=== PATIENT | female | born 1955 | race Caucasian/White ===

== ENCOUNTER 2024-03-12 13:27 | Outpatient (OUT) | payer OTHER, SELFPAY ==
--- NOTE | 2024-03-12 13:39 | ECG_ITS ---
The [facility] Test Date: 2024-03-12 Pat Name: JOSE ROYAL Department: Room: - Gender: Female [employer]: : 1955 Requested By: MAYRA TOVAR Order Number: [id number] Reading MD: NIKKI BALDWIN Measurements Intervals [place] Rate: 75 P: 71 [place]: 143 QRS: 51 QRSD: 77 T: 53 QT: 363 QTc: 407 Interpretive Statements SINUS RHYTHM No previous ECG available for comparison Electronically Signed On 03-13-2024 6:59:33 EST by NIKKI BALDWIN
[2024-03-12 14:31] LABS: Basophils Percent Auto 0.5 % (0.2-2.0); Eosinophils Absolute Auto 0.1 10^3/uL (0.0-0.7); Eosinophils Percent Auto 0.8 % (0.9-7.0); Hematocrit 40.8 % (36.0-48.0); Hemoglobin 13.8 g/dL (12.0-16.0); Immature Granulocytes Abs Auto 0.02 10^3/uL (0.00-0.03); Immature Granulocytes Pct Auto 0.3 % (0.0-0.5); Lymphocytes Absolute Auto 1.1 10^3/uL (1.2-3.8); Lymphocytes Percent Auto 17.2 % (20.5-60.0); Mean Corpuscular HGB Conc 33.8 g/dL (29.9-35.2); Mean Corpuscular Hemoglobin 30.5 pg (26.7-34.0); Mean Corpuscular Volume 90.1 fL (81.0-99.0); Mean Platelet Volume 10.3 fL (9.5-13.5); Monocytes Absolute Auto 0.6 10^3/uL (0.3-0.8); Monocytes Percent Auto 9.2 % (1.7-12.0); Neutrophils Absolute Auto 4.7 10^3/uL (1.4-6.5); Platelet Count 211 10^3/uL (150-450); Red Blood Count 4.53 10^6/uL (4.20-5.40); Red Cell Distribution Width 12.6 % (11.0-15.0); White Blood Count 6.5 10^3/uL (4.0-11.0)
--- NOTE | 2024-03-12 14:32 | XR_ITS ---
The [address] [address] Patient Name: JOSE ROYAL MRN: [id number] date: 1955 Sex: F Assigned Patient Location: [facility] Current Patient Location: [facility] Accession/Order Number: [id number] Exam Date: 03/12/2024 14:25 Report Date: 03/12/2024 21:12 At the request of: MAYRA TOVAR Procedure: XR chest 2V EXAM: XR chest 2V HISTORY: Preop exam COMPARISON: None TECHNIQUE: 2 views FINDINGS: The heart and mediastinum are unremarkable. The lungs are clear. No focal infiltrates are seen. Chronic rotator cuff tear seen on the left. XR/XR chest 2V IMPRESSION: No acute cardiopulmonary pathology. Electronically authenticated by: Roberto PETER Date: 03/12/2024 21:12
[2024-03-12 15:10] LABS: Anion Gap 12.2; BUN Creatinine Ratio 9.7; Calcium 8.4 mg/dL (8.5-10.1); Carbon Dioxide 26.9 mmol/L (21.0-32.0); Chloride 108 mmol/L (98-107); Estimated GFR (African America >60 (>=60 mL/min/1.73m^2); Estimated GFR (Non-African Ame 53 (>=60 mL/min/1.73m^2); Glucose 141 mg/dL (74-106); Potassium 4.1 mmol/L (3.5-5.1); Sodium 143 mmol/L (136-145)
== END 2024-03-12 13:28 | disposition home or self-care (01) ==
PROVIDERS: PCP Internal Medicine; Visit Provider Otolaryngology
DX: Z01.810 Encounter for preprocedural cardiovascular examination (principal); Z01.812 Encounter for preprocedural laboratory examination; R13.13 Dysphagia, pharyngeal phase; J39.2 Other diseases of pharynx
CPT/HCPCS: 71046; 80048; 85025; 93005

== ENCOUNTER 2024-03-13 08:43 | Day surgery (SDC) | payer OTHER, SELFPAY ==
[2024-03-12 14:17] VITALS: BP 111/72; PULSE 81; TEMP 36.2; O2SAT 98; BMI 25.4
[2024-03-13] VITALS (9 sets, daily range): BP systolic 112–134; BP diastolic 59–79; PULSE 80–94; TEMP 36.3; O2SAT 92–100; BMI 25.0
--- NOTE | 2024-03-13 | PCN_ITS ---
OPERATION DATE: 03/13/2023 PRIMARY CARE PROVIDER: China Vigil CNP SURGEON: Shannon Wells M.D. PREOPERATIVE DIAGNOSIS: Dysphagia. POSTOPERATIVE DIAGNOSIS: Esophageal mass. PROCEDURE: Direct laryngoscopy. ANESTHESIA: General endotracheal. COMPLICATIONS: None. FINDINGS: A friable mass within either a Zenker?s diverticulum or the proximal esophagus. INDICATIONS: This 69-year-old woman presented complaining of throat pain and dysphagia since February 02, 2024. She was treated with prednisone in Urgent Care and reported that her pain resolved, but her dysphagia persisted. Patient describes her dysphagia as only being able to swallow on the right side of her throat. An effort was made to do an indirect laryngoscopy and to do fiberoptic laryngoscopy in the office on March 11; however, this was not tolerated by the patient due to a very active gag reflex. Decision was made, because of the patient?s very specific complaint, to proceed with a direct visualization of the hypopharynx. PROCEDURE: Patient identified in the holding area and taken back to the OR, where she was placed in the supine position. After induction of general endotracheal anesthesia, the table was turned, a shoulder roll placed and a tooth guard put in position. An anterior commissure laryngoscope was passed along the left throat, the tonsillar fossae, tongue base, supraglottic larynx and endolarynx were examined, and there was no abnormality noted. The piriform sinuses were examined, and there was no abnormality evident. The scope was then passed posterior to the cricoid cartilage, and once the cricoid cartilage was elevated, there was an opening consistent either with the opening of the esophagus or possibly a Zenker?s diverticulum, which was immediately evident, and a smooth walled mass evident within that opening. The mass was palpated with suction and there was slight bleeding. Because of the limited information available about the mass, the decision was made not to do a biopsy at this point, to avoid potential catastrophic bleeding. The scope was then removed and the patient was awakened and taken to the recovery room in good condition. I then contacted my office to arrange for an expedited CT neck and barium esophagram to better determine the nature and extent of the mass or diverticulum. MARLI
[2024-03-13] MEDS: LACTATED RINGER'S SOLUTION 1,000 ML 50 ML IV (09:09)
--- NOTE | 2024-03-13 11:20 | CT_ITS ---
The [address] [address] Patient Name: JOSE ROYAL MRN: [id number] date: 1955 Sex: F Assigned Patient [facility]: [facility] Current Patient Location: [facility] Accession/Order Number: [id number] Exam Date: 03/13/2024 12:10 Report Date: 03/13/2024 12:42 At the request of: MAYRA WELLS Procedure: CT soft tissue neck w con EXAMINATION: CT soft tissue neck w con HISTORY: Esophageal mass COMPARISON: No relevant comparison available. TECHNIQUE: Axial, Coronal, and Sagittal CT images created with IV contrast. Dose reduction techniques were achieved by using automated exposure control and/or adjustment of mA and/or kV according to patient size and/or use of iterative reconstruction technique. FINDINGS: NASOPHARYNX: No asymmetry of the fossae of Rosenmuller and torus tubarius. ORAL CAVITY: No visible mass. OROPHARYNX: No asymmetry of the facial and lingual tonsils. HYPOPHARYNX: No mass or other visible lesion. LARYNX: No mass or asymmetry of the vocal cords. SINUSES: No significant fluid or mucosal thickening. NECK GLANDS: No visible abnormality of the parotid, submandibular, and thyroid glands. LYMPH NODES: No pathological-appearing or enlarged lymph nodes. VASCULATURE: No suspicious abnormality. BONES: Multilevel degenerative disc disease of cervical spine. Reversal normal curvature; positioning versus muscle spasm. OTHER: 1 cm pocket of air which may be within the proximal esophagus with subsequent 8 mm thick band of soft tissue extending across the esophagus with air-filled esophagus distally, versus large Zenker's diverticulum with air trapped in the distal pocket and collapsed esophagus running anteriorly to the diverticulum and completely flattens. No abscess, significant vascularity, or involvement of the airway. CT/CT soft tissue neck w con IMPRESSION: 1. Large Zenker's diverticulum versus soft tissue mass/soft tissue band within proximal esophagus. Barium esophagram is recommended for further evaluation. Findings were discussed with Dr. Wells via telephone. Electronically authenticated by: SHANELLE COREA Date: 03/13/2024 12:42
[2024-03-13 11:43] LABS: Estimated GFR (African America >60 (>=60 mL/min/1.73m^2); Estimated GFR (Non-African Ame >60 (>=60 mL/min/1.73m^2)
--- NOTE | 2024-03-13 12:16 | PC.NURSE ---
To CT per wheelchair
--- NOTE | 2024-03-13 12:17 | PC.NURSE ---
Left for CT at 1205
--- NOTE | 2024-03-13 12:26 | PC.NURSE ---
Returns from CT Scan and back on cart
== END 2024-03-13 12:45 | disposition home or self-care (01) ==
PROVIDERS: PCP Internal Medicine; Visit Provider Otolaryngology
PROC: (CPT 320; principal; 2024-03-13 10:00)
DX: R13.13 Dysphagia, pharyngeal phase (principal); K22.89 Other specified disease of esophagus; J39.2 Other diseases of pharynx; I10 Essential (primary) hypertension; J44.9 Chronic obstructive pulmonary disease, unspecified; Z98.51 Tubal ligation status; E03.9 Hypothyroidism, unspecified
CPT/HCPCS: 31525; 36415; 70491; 82565; J1100; J2250; J2405; J2704; J3010; Q9967

== ENCOUNTER 2024-03-14 12:15 | Outpatient (OUT) | payer OTHER, SELFPAY ==
--- OUTSIDE RECORDS SUMMARY | 2024-03-14 12:24 | XMS_ITS | CCD ---
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 Name Role Phone Brian Sullivan Primary Care Provider [phone] BRIAN SULLIVAN Primary Care Unavailable KITTY FRITZ Referring Unavailable Brian Sullivan Primary Care Provider Unavaillynn e Brian Sullivan DO Primary Care Provider KITTY FRITZ Referring Unavailable BRIAN SULLIVAN Primary Care Unavailable Mac Small Primary Care Provid er KITTY FRITZ Attending Unavailable BRIAN SULLIVAN Referring Unavailable BRIAN SULLIVAN Primary Care Unavailable MAC VIGIL Attending Unavailable BRIAN SULLIVAN Referring Unavailable MAC VIGIL Primary Care Unavailable MAC VIGIL Attending Unavailable MAC VIGIL Referring Unavailable MAC VIGIL Primary Care Unavailable Brian Sullivan MD Primary Care Provider SHANNON TOVAR Attending Unavailable NATALEE DE LOS SANTOS Attending Unavailable NATALEE DE LOS SANTOS Referring Unavailable NATALEE DE LOS SANTOS Attending Unavailable Allergies Allergy Classification Reported Allergen(s) Allergy Type Date of Onset Reaction(s) Facility (12 sources) Lisinopril; Translations: [LISINOPRIL] Drug Allergy [address] [facility] Work Phone: (7 sources) Lisinopril Propensity to adverse reactions 9 Cough [facility] Medications Current Medications Medication Drug Class(es) Dates Sig (Normalized) Sig (Original) atenolol 50 mg oral tablet (18 sources) beta-Adrenergic Aston Start: 01-22-2023 take 1 tablet by mouth in the morning atenolol (Tenormin) 50 MG tablet Take 50 mg by mouth in the morning. 01/22/2023 Active azithromycin 250 mg oral tablet (1 source) Macrolide Antimicrobial Start: 02-25-2024 End: 02-29-2024 azithromycin (ZITHROMAX) 250 mg tablet Indications: Acute non-recurrent pansinusitis Take 2 tablets the first day, then 1 tablet daily for 4 days. 6 tablet 02/25/2024 02/29/2024 Active 60 actuat budesonide 0.08 mg/actuat / formoterol fumarate 0.0045 mg/actuat metered dose inhaler (7 sources) Corticosteroid, beta2-Adrenergic Agonist Start: 12-20-2022 End: 03-11-2024 Symbicort 80-4.5 MCG/ACT inhaler 12/20/2022 03/11/2024 Discontinued (Therapy completed) Start: 01-13-2022 take 2 puff(s) by in halation in the morning budesonide-formoteroL (SYMBICORT) 80-4.5 mcg/actuation inhaler Indications: Chronic obstructive pulmonary disease, unspecified COPD type ([facility]) Inhale 2 puffs in the morning and 2 puffs before bedtime. 10.2 g 12 01/13/2022 Active cholecalciferol 0.125 mg oral capsule (13 sources) Vitamin D End: 03-11-2024 cholecalciferol (Vitamin D-3) 125 MCG (5000 UT) capsule 1 (one) time each day at the same time 03/11/2024 Discontinued (Therapy completed) cyclobenzaprine hydrochloride 10 mg oral tablet (20 sources) Muscle Relaxant Start: 11-29-2022 End: 03-08-2023 take 1 tablet by mouth at bedtime cyclobenzaprine (Flexeril) 10 MG tablet Take 1 tablet by mouth at bedtime 03/08/2023 Active famotidine 20 mg oral tablet (19 sources) Histamine-2 Receptor Antagonist Start: 01-25-2023 End: 02-25-2024 take 1 tablet by mouth at bedtime famotidine (Pepcid) 20 MG tablet Take 1 tablet by mouth at bedtime 01/25/2023 Active 14 actuat fluticasone furoate 0.1 mg/actuat dry powder inhaler (18 sources) Corticosteroid Start: 10-01-2023 take 1 puff(s) by inhalation in the morning Arnuity Ellipta 100 MCG/ACT inhaler Inhale 1 puff in the morning. 10/01/2023 Active Start: 10-01-2023 take 1 puff(s) by in halation in the morning fluticasone furoate (ARNUITY ELLIPTA) 100 mcg/actuation blister with device Indications: Chronic obstructive pulmonary disease, unspecified COPD type ([facility]) Inhale 1 puff in the morning. 3 each 5 10/01/2023 Active Start: 12-07-2022 take 1 puff(s) by mo uth once daily in the morning fluticasone furoate (ARNUITY ELLIPTA) 100 mcg/actuation blister with device INHALE ONE PUFF BY MOUTH EVERY MORNING 3 each 1 12/07/2022 Active Start: 12-07-2022 take 1 puff(s) by mo uth once daily in the morning fluticasone furoate (ARNUITY ELLIPTA) 100 mcg/actuation blister with device INHALE ONE PUFF BY MOUTH EVERY MORNING 3 each 1 12/07/2022 Active ibandronic acid 150 mg oral tablet (19 sources) Bisphosphonate Start: 12-19-2022 End: 11-28-2023 take 1 tablet by mouth every 30 days ibandronate (Boniva) 150 MG tablet Take 150 mg by mouth every 30 (thirty) days 11/29/2023 Active levothyroxine sodium 0.112 mg oral tablet (18 sources) l-Thyroxine Start: 01-22-2023 take 1 tablet by mouth in the morning levothyroxine (Synthroid, Levoxyl) 112 MCG tablet Take 112 mcg by mouth in the morning. 01/22/2023 Active metoclopramide 5 mg oral tablet (4 sources) Dopamine-2 Receptor Antagonist Start: 12-27-2021 take 1 tablet by mouth at bedtime metoclopramide (REGLAN) 5 mg tablet Indications: Laryngopharyngeal reflux Take 1 tablet (5 mg total) by mouth in the morning and at bedtime. 180 tablet 1 12/27/2021 Active montelukast 10 mg oral tablet (18 sources) Leukotriene Receptor Antagonist Start: 02-26-2023 take 1 tablet by mouth in the morning montelukast (Singulair) 10 MG tablet Take 1 tablet by mouth in the morning. 02/26/2023 Active Start: 11-26-2022 take 1 tablet by ruddy th once daily in the morning montelukast (SINGULAIR) 10 mg tablet TAKE ONE TABLET BY MOUTH EVERY MORNING 30 tablet 2 11/26/2022 Active nabumetone 500 mg oral tablet (9 sources) Nonsteroidal Anti-inflammatory Drug Start: 10-02-2021 End: 02-25-2024 nabumetone (RELAFEN) 500 mg tablet 10/02/2021 02/25/2024 Discontinued (Therapy completed) pantoprazole 40 mg delayed release oral tablet (18 sources) Proton Pump Inhibitor Start: 03-26-2023 take 1 tablet by mouth in the morning pantoprazole (ProtoNix) 40 MG EC tablet Take 1 tablet by mouth in the morning. 03/26/2023 Active Start: 09-27-2022 take 1 tablet by ruddy th once daily in the morning pantoprazole (PROTONIX) 40 mg EC tablet Indications: Laryngopharyngeal reflux TAKE ONE TABLET BY MOUTH EVERY MORNING 30 tablet 5 09/27/2022 Active potassium chloride 10 meq extended release oral tablet (19 sources) Start: 07-30-2022 End: 02-22-2023 take 1 tablet by mouth in the morning potassium chloride CR (Klor-Con) 10 MEQ ER tablet Take 1 tablet by mouth in the morning and 1 tablet before bedtime. 02/22/2023 Active predniSONE 20 mg oral tablet (1 source) Start: 02-25-2024 End: 03-01-2024 take 1 tablet by mouth in the morning predniSONE (DELTASONE) 20 mg tablet Indications: Sore throat , Acute non-recurrent pansinusitis Take 1 tablet (20 mg total) by mouth in the morning for 5 days. 5 tablet 02/25/2024 03/01/2024 Active Problems Active Problems Problem Classification Problem Date Documented Da te Episodic/Chronic Chronic obstructive pulmonary disease and bronchiectasis (20 sources) Chronic obstructive lung disease; Translations: [Chronic obstructive pulmonary disease, unspecified] Onset: 2 01-11-2022 Chronic Esophageal disorders (20 sources) Laryngopharyngeal reflux; Translations: [Gastro-esophageal reflux disease without esophagitis] Onset: 2 11-08-2021 Chronic Essential hypertension (20 sources) Essential hypertension; Translations: [Essential (primary) hypertension] Onset: 2 11-08-2021 Chronic Osteoporosis (20 sources) Osteoporosis; Translations: [Age-related osteoporosis without current pathological fracture] Onset: 3 03-08-2022 Chronic Other connective tissue disease (18 sources) Tear of left rotator cuff; Translations: [Unspecified rotator cuff tear or rupture of left shoulder, not specified as traumatic] Onset: 0 11-08-2021 Episodic Other connective tissue disease (8 sources) Bicipital tendinitis, left shoulder; Translations: [Bicipital tenosynovitis] Onset: 5 03-06-2024 Episodic Other connective tissue disease (8 sources) Full thickness rotator cuff tear; Translations: [Complete rotator cuff tear or rupture of right shoulder, not specified as traumatic] Onset: 5 03-06-2024 Episodic Other gastrointestinal disorders (1 source) Heartburn Onset: 5 Episodic Other gastrointestinal disorders (2 sources) Pharyngeal dysphagia; Translations: [Dysphagia, pharyngeal phase] 03-11-2024 Episodic Other nervous system disorders (18 sources) Chronic pain; Translations: [Other chronic pain] Onset: 2 11-08-2021 Chronic Other non-traumatic joint disorders (18 sources) Derangement of left shoulder joint; Translations: [Other specific joint derangements of left shoulder, not elsewhere classified] Onset: 2 11-08-2021 Chronic Other upper respiratory disease (18 sources) Allergic rhinitis; Translations: [Allergic rhinitis, unspecified] Onset: 2 11-08-2021 Chronic Other upper respiratory disease (2 sources) Sore throat - chronic; Translations: [Chronic pharyngitis] 03-03-2024 Chronic Other upper respiratory disease (2 sources) Pharyngeal gag reflex finding; Translations: [Other diseases of pharynx] 03-11-2024 Episodic Other upper respiratory infections (4 sources) Sore throat symptom; Translations: [Acute pharyngitis, unspecified] Onset: 5 02-25-2024 Episodic Thyroid disorders (19 sources) Hypothyroidism; Translations: [Hypothyroidism, unspecified] Onset: 09-2711-08-2021 Chronic Unclassified (2 sources) Patient encounter status; Translations: [Screening breast examination] Unclassified (1 source) establish Onset: Past or Other Problems Problem Classification Problem Date Documented Date Episodic/Chronic Fluid and electrolyte disorders (19 sources) Hypokalemia; Translations: [Hypokalemia] Onset: 11-08-2021 11-08-2021 Episodic Joint disorders and dislocations; trauma-related (20 sources) Closed traumatic dislocation of joint of shoulder region; Translations: [Unspecified dislocation of unspecified shoulder joint, initial encounter] Onset: 11-08-2021 11-08-2021 Episodic Mood disorders (10 sources) Mood disorders Onset: 11-29-2022 Resolved: 06-18-2023 11-29-2022 Other connective tissue disease (10 sources) Biceps tendinitis; Translations: [Bicipital tendinitis, right shoulder] Onset: 11-08-2021 11-08-2021 Episodic Other connective tissue disease (10 sources) Bicipital tenosynovitis; Translations: [Bicipital tendinitis, unspecified shoulder] Onset: 11-08-2021 11-08-2021 Episodic Other connective tissue disease (10 sources) Disorder of rotator cuff; Translations: [Unspecified disorder of synovium and tendon, unspecified shoulder] Onset: 11-08-2021 11-08-2021 Episodic Other connective tissue disease (1 source) Other muscle spasm; Translations: [Other muscle spasm] Onset: 10-01-2023 Episodic Other diseases of kidney and ureters (18 sources) Cyst of kidney; Translations: [Cyst of kidney, acquired] Onset: 11-15-2016 03-05-2017 Episodic Other non-traumatic joint disorders (18 sources) Shoulder joint pain; Translations: [Pain in unspecified shoulder] Onset: 11-08-2021 11-08-2021 Episodic Other non-traumatic joint disorders (1 source) Pain in right shoulder; Translations: [Pain in right shoulder] Onset: 11-08-2021 Episodic Other non-traumatic joint disorders (1 source) Pain in left shoulder; Translations: [Pain in left shoulder] Onset: 11-08-2021 Episodic Other nutritional; endocrine; and metabolic disorders (1 source) Body mass index (BMI) 27.0-27.9, adult; Translations: [Body mass index (BMI) 27.0-27.9, adult] Onset: 06-18-2023 Episodic Other screening for suspected conditions (not mental disorders or infectious disease) (19 sources) Decreased vitamin D; Translations: [Other specified abnormal findings of blood chemistry] Onset: 09-22-2020 11-08-2021 Episodic Residual codes; unclassified (18 sources) History of arthroscopic procedure on shoulder; Translations: [Other specified postprocedural states] Onset: 11-08-2021 11-08-2021 Episodic Spondylosis; intervertebral disc disorders; other back problems (18 sources) Lumbago with sciatica; Translations: [Lumbago with sciatica, unspecified side] Onset: 11-08-2021 11-08-2021 Episodic Unclassified (10 sources) Onset: 11-29-2022 Resolved: 02-25-2024 11-29-2022 Results Test Name Value Interpretation Reference Range Facility CT Neck W contrast Jose Manuel [address] [place] [address] CT Scan Report Signed Patient: AUSTIN ROYAL MR#: [id number] : 1955 Acct:[id number] Age/Sex: 69 / F ADM Date: 03/13/24 Loc: SURGOUT Attending Dr: Shannon Tovar M.D. Ordering Physician: Shannon Tovar M.D. Date of Service: 03/13/24 Procedure(s): CT soft tissue neck w con Accession Number(s): [id number] cc: [place] [id number] Patient Name: AUSTIN ROYAL MRN: [id number] date: 1955 Sex: F Assigned Patient Location: [facility] Current Patient Location: [facility] Accession/Order Number: [id number] Exam Date: 03/13/2024 12:10 Report Date: 03/13/2024 12:42 At the request of: SHANNON TOVAR Procedure: CT soft tissue neck w con EXAMINATION: CT soft tissue neck w con HISTORY: Esophageal mass COMPARISON: No relevant comparison available. TECHNIQUE: Axial, Coronal, and Sagittal CT images created with IV contrast. Dose reduction techniques were achieved by using automated exposure control and/or adjustment of mA and/or kV according to patient size and/or use of iterative reconstruction technique. FINDINGS: NASOPHARYNX: No asymmetry of the fossae of Rosenmuller and torus tubarius. ORAL CAVITY: No visible mass. OROPHARYNX: No asymmetry of the facial and lingual tonsils. HYPOPHARYNX: No mass or other visible lesion. LARYNX: No mass or asymmetry of the vocal cords. SINUSES: No significant fluid or mucosal thickening. NECK GLANDS: No visible abnormality of the parotid, submandibular, and thyroid glands. LYMPH NODES: No pathological-appeari ng or enlarged lymph nodes. VASCULATURE: No suspicious abnormality. BONES: Multilevel degenerative disc disease of cervical spine. Reversal normal curvature; positioning versus muscle spasm. OTHER: 1 cm pocket of air which may be within the proximal esophagus with subsequent 8 mm thick band of soft tissue extending across the esophagus with air-filled esophagus distally, versus large Zenker's diverticulum with air trapped in the distal pocket and collapsed esophagus running anteriorly to the diverticulum and completely flattens. No abscess, significant vascularity, or involvement of the airway. CT/CT soft tissue neck w con IMPRESSION: 1. Large Zenker's diverticulum versus soft tissue mass/soft tissue band within proximal esophagus. Barium esophagram is recommended for further evaluation. Findings were discussed with Dr. Tovar via telephone. Electronically authenticated by: GOMEZ KIMBROUGH Date: 03/13/2024 12:42 Dictated By: Gomez Kimbrough M.D. Signed By: 03/13/24 1245 DD/ 1242 TD/TT: Machine Engraver: [facility] Radiology, Radiologist, MD - 03/13/2024 [place] [address] CT Scan Report Signed Patient: AUSTIN ROYAL MR#: [id number] : 1955 Acct:[id number] Age/Sex: 69 / F ADM Date: 03/13/24 Loc: SURGOUT Attending Dr: Shannon Tovar M.D. Ordering Physician: Shannon Tovar M.D. Date of Service: 03/13/24 Procedure(s): CT soft tissue neck w con Accession Number(s): [id number] cc: BRIAN SULLIVAN [address] [address] Patient Name: AUSTIN ROYAL MRN: [id number] date: 1955 Sex: F Assigned Patient Location: [facility]OUT [facility] Accession/Order Number: [id number] Exam Date: 03/13/2024 12:10 Report Date: 03/13/2024 12:42 At the request of: SHANNON TOVAR Procedure: CT soft tissue neck w con EXAMINATION: CT soft tissue neck w con HISTORY: Esophageal mass COMPARISON: No relevant comparison available. TECHNIQUE: Axial, Coronal, and Sagittal CT images created with IV contrast. Dose reduction techniques were achieved by using automated exposure control and/or adjustment of mA and/or kV according to patient size and/or use of iterative reconstruction technique. FINDINGS: NASOPHARYNX: No asymmetry of the fossae of Rosenmuller and torus tubarius. ORAL CAVITY: No visible mass. OROPHARYNX: No asymmetry of the facial and lingual tonsils. HYPOPHARYNX: No mass or other visible lesion. LARYNX: No mass or asymmetry of the vocal cords. SINUSES: No significant fluid or mucosal thickening. NECK GLANDS: No visible abnormality of the parotid, submandibular, and thyroid glands. LYMPH NODES: No pathological-appeari ng or enlarged lymph nodes. VASCULATURE: No suspicious abnormality. BONES: Multilevel degenerative disc disease of cervical spine. Reversal normal curvature; positioning versus muscle spasm. OTHER: 1 cm pocket of air which may be within the proximal esophagus with subsequent 8 mm thick band of soft tissue extending across the esophagus with air-filled esophagus distally, versus large Zenker's diverticulum with air trapped in the distal pocket and collapsed esophagus running anteriorly to the diverticulum and completely flattens. No abscess, significant vascularity, or involvement of the airway. CT/CT soft tissue neck w con IMPRESSION: 1. Large Zenker's diverticulum versus soft tissue mass/soft tissue band within proximal esophagus. Barium esophagram is recommended for further evaluation. Findings were discussed with Dr. Tovar via telephone. Electronically authenticated by: GOMEZ KIMBROUGH Date: 03/13/2024 12:42 Dictated By: Gomez Kimbrough M.D. Signed By: 03/13/24 1245 DD/ 1242 TD/TT: Machine Engraver: [facility] Rad[facility] Study observation (narrative) [facility] CT Neck W contrast IVOrdered By: Radiologist Radiology on 03-13-2024 [facility] [employer] Work Phone: ECG 12-LEADon 03-13-2024 [place] [address] Electrocardiograph Report Signed Patient: AUSTIN ROYAL MR#: [id number] : 1955 Acct:[id number] Age/Sex: 69 / F ADM Date: 03/12/24 Loc: PST Attending Dr: Shannon Tovar M.D. Ordering Physician: Shannon Tovar M.D. Date of Service: 03/12/24 Procedure(s): ECG 12 lead Accession Number(s): [id number] cc: [facility] Test Date: 2024-03-12 Pat Name: AUSTIN ROYAL Department: Room: - Gender: Female Desk Operator: : 1955 Requested By: SHANNON TOVAR Order Number: [id number] Reading MD: WISAM MARTIN Measurements Intervals [place] Rate: 75 P: 71 WA: 143 QRS: 51 QRSD: 77 T: 53 QT: 363 QTc: 407 Interpretive Statements SINUS RHYTHM No previous ECG available for comparison Electronically Signed On 03-13-2024 6:59:33 EST by WISAM MARTIN Dictated By: Wisam Martin D.O. Signed By: 03/13/24 0659 DD/ 1418 TD/TT: Machine Engraver: [facility] Radiology, RadiologistMD - 03/13/2024 The [place] [id number] Electrocardiograph Report Signed Patient: AUSTIN ROYAL MR#: [id number] : 1955 Acct:[id number] Age/Sex: 69 / F ADM Date: 03/12/24 Loc: PST Attending Dr: Shannon Tovar M.D. Ordering Physician: Shannon Tovar M.D. Date of Service: 03/12/24 Procedure(s): ECG 12 lead Accession Number(s): [id number] cc: [facility] Test Date: 2024-03-12 Pat Name: AUSTIN ROYAL Department: Room: - Gender: Female Desk Operator: : 1955 Requested By: SHANNON TOVAR Order Number: [id number] Reading MD: WISAM MARTIN Measurements Intervals [place] Rate: 75 P: 71 WA: 143 QRS: 51 QRSD: 77 T: 53 QT: 363 QTc: 407 Interpretive Statements SINUS RHYTHM No previous ECG available for comparison Electronically Signed On 03-13-2024 6:59:33 EST by WISAM MARTIN Dictated By: Wisam Martin D.O. Signed By: 03/13/24 0659 DD/ 1418 TD/TT: Machine Engraver: [facility] ECG 12-LEADOrdered By: Radio logist Radiology on 03-13-2024 [facility] [email or web address] Work Phone: [facility] CREATININEon 03-13-2024 Creatinine [Mass/Vol] 0.81 mg/dL 0.55 - 1.02 mg/dL [facility] GFR/1.73 sq M.predicted CKD-EPI (S/P/Bld) [Vol rate/Area] >60 >=60 mL/min/1.73m 2 [facility] EGFR-NON AF AUSTR[place]IAN >60 >=60 mL/min/1.73m [address] [facility] Health[facility] ALL CBC WITH AUTO DIFFon BASOPHILS ABSOLUTE AUTO [address] [facility] Basophils/100 WBC (Bld) 0.5 % 0.2 - 2.0 % [facility] Eosinophils/100 WBC (Bld) 0.8 % Low 0.9 - 7.0 % [facility] Erythrocyte distribution width (RBC) [Ratio] 12.6 % 11.0 - 15.0 % [facility] Hematocrit (Bld) [Volume fraction] 40.8 % 36.0 - 48.0 % [facility] Health[facility] Hemoglobin (Bld) [Mass/Vol] 13.8 g/dL 12.0 - 16.0 g/dL [facility] IMMATURE GRANULOCYTES ABS AUTO 0.02 [facility] Immature granulocytes/100 WBC (Bld) 0.3 % 0.0 - 0.5 % [facility] Interpretation and review of laboratory results Abnormal [facility] LYMPHOCYTES ABSOLUTE AUTO 1.[address] [facility] Lymphocytes/100 WBC (Bld) 17.2 % Low 20.5 - 60.0 % [facility] MCH (RBC) [Entitic mass] 30.5 pg 26.7 - 34.[address] [facility] MCHC (RBC) [Mass/Vol] 33.8 g/dL 29.9 - 35.2 g/dL [facility] MCV (RBC) [Entitic vol] 90.1 fL 81.0 - 99.[address] [facility] MONOCYTES ABSOLUTE AUTO 0.[address] [facility] Monocytes/100 WBC (Bld) 9.2 % 1.7 - 12.0 % [facility] NEUTROPHILS ABSOLUTE AUTO 4.[address] [facility] Neutrophils/100 WBC (Bld) 72 % 43.0 - 75.0 % [facility] Platelet mean volume (Bld) [Entitic vol] 10.3 fL 9.5 - 13.5 fL [facility] EO # 0.1 [facility] PLT 211 [facility] RBC 4.53 [facility] WBC 6.5 [facility] ECG 12-LEADon 03-12-2024 Radiology Study observation (narrative) [facility] XR CHEST 2Von 03-12-2024 [place] [address] XRay Report Signed Patient: AUSTIN ROYAL MR#: [id number] : 1955 Acct:[id number] Age/Sex: 69 / F ADM Date: 03/12/24 Loc: [facility] Attending Dr: Shannon Tovar M.D. Ordering Physician: Shannon Tovar M.D. Date of Service: 03/12/24 Procedure(s): XR chest 2V Accession Number(s): [id number] cc: Shannon Tovar M.D.; BRIAN SULLIVAN [address], [place] [id number] Patient Name: AUSTIN ROYAL MRN: [facility]:[id number] date: 1955 Sex: F Assigned Patient Location: [facility] Current Patient Location: [facility] Accession/Order Number: [id number] Exam Date: 03/12/2024 14:25 Report Date: 03/12/2024 21:12 At the request of: SHANNON TOVAR Procedure: XR chest 2V EXAM: XR chest 2V HISTORY: Preop exam COMPARISON: None TECHNIQUE: 2 views FINDINGS: The heart and mediastinum are unremarkable. The lungs are clear. No focal infiltrates are seen. Chronic rotator cuff tear seen on the left. XR/XR chest 2V IMPRESSION: No acute cardiopulmonary pathology. Electronically authenticated by: Roberto PETER Date: 03/12/2024 21:12 Dictated By: Roberto Peter M.D. Signed By: 03/12/242114 DD/ 11 TD/TT: Machine Engraver: [facility] Radiology, Radiologist, MD - 03/12/2024 [place] [address] XRay Report Signed Patient: AUSTIN ROYAL MR#: [id number] : 1955 Acct:[id number] Age/Sex: 69 / F ADM Date: 03/12/24 Loc: [facility] Attending Dr: Shannon Tovar M.D. Ordering Physician: Shannon Tovar M.D. Date of Service: 03/12/24 Procedure(s): XR chest 2V Accession Number(s): [id number] cc: Shannon Tovar M.D.; BRIAN SULLIVAN [place] [id number] Patient Name: AUSTIN ROYAL MRN: [facility]:[id number] date: 1955 Sex: F Assigned Patient Location: [facility] Current Patient Location: [facility] Accession/Order Number: [id number] Exam Date: 03/12/2024 14:25 Report Date: 03/12/2024 21:12 At the request of: SHANNON TOVAR Procedure: XR chest 2V EXAM: XR chest 2V HISTORY: Preop exam COMPARISON: None TECHNIQUE: 2 views FINDINGS: The heart and mediastinum are unremarkable. The lungs are clear. No focal infiltrates are seen. Chronic rotator cuff tear seen on the left. XR/XR chest 2V IMPRESSION: No acute cardiopulmonary pathology. Electronically authenticated by: Roberto PETER Date: 03/12/2024 21:12 Dictated By: Roberto Peter M.D. Signed By: 03/12/242114 DD/ 11 TD/TT: Machine Engraver: [facility] Radiology Study observation (narrative) [facility] [facility] 2VOrdered By: [facility] on 03-12-2024 [facility] [email or web address] e Work Phone: POCT Influenza A/Influenza B /SARS-COV-2 [facility] 02-25-2024 External Poct Influenza A Antigen Negative [facility] External Poct Influenza B Antigen Negative [facility] SARS-CoV-2 (COVID-19) Ag IA.rapid Ql (Resp) Negative [facility] PO[facility] rapid strep Aon 025 S. pyogenes Ag IA Ql (Unsp spec) Negative Negative [facility] BASIC METABOLIC PANLon 06-17 Anion gap [Moles/Vol] 8 mmol/L Normal 5-15 [facility] Comment on above: Performed By: #### B MP #### [facility] ([id number]) [address], [address] [place] [address] Calcium [Mass/Vol] 9.0 mg/dL Normal 8.5-10.5 [facility] Comment on above: Performed By: #### B MP #### [facility] ([id number]) [address], [address] [place] [address] Chloride [Moles/Vol] 102 mmol/L Normal 98-109 [facility] Comment on above: Performed By: #### B MP #### [facility] ([id number]) [address], [address] [place] [address] CO2 [Moles/Vol] 25 mmol/L Normal 22-32 [facility] Comment on above: Performed By: #### B MP #### [facility] ([id number]) [address], [address] [place] [address] Creatinine [Mass/Vol] 0.86 mg/dL Normal 0.40-1.00 [facility] Comment on above: Result Comment: METH OD TRACEABLE TO IDMS STANDARD Performed By: #### B MP #### [facility] ([id number]) [address], [address] [place] [address] GFR/1.73 sq M.predicted among non-blacks MDRD (S/P/Bld) [Vol rate/Area] 74 mL/min/{1.73_m2} Normal >59 [facility] Comment on above: Result Comment: Reported eGFR is based on the CKD-EPI 2020 equation that does not use a race coefficient. Performed By: #### B MP #### [facility] ([id number]) [address], [address] [place] [address] Glucose [Mass/Vol] 130 mg/dL High 65-99 [facility] Comment on above: Performed By: #### B MP #### [facility] ([id number]) [address], [address] [place] [address] Potassium [Moles/Vol] 4.3 mmol/L Normal 3.5-5.0 [facility] Comment on above: Performed By: #### B MP #### [facility] ([id number]) [address], [address] [place] [address] Sodium [Moles/Vol] 135 mmol/L Normal 134-146 [facility] Comment on above: Performed By: #### B MP #### [facility] ([id number]) [address], [address] [place] [address] Urea nitrogen [Mass/Vol] 12 mg/dL Normal 5-27 [facility] Comment on above: Performed By: #### B MP #### [facility] ([id number]) [address], [address] [place] [address] CULTURE, URINE, ROUTINEon CULTURE, URINE, ROUTINE SEE NOTE Abnormal [facility] Comment on above: Result Comment: CULTURE, URINE, ROUTINE Micro Number: [id number] Test Status: Final Specimen Source: Urine Specimen Quality: Adequate Result: Greater than 100,000 CFU/mL of Escherichia coli E.coli INT MCKAY AMOX/CLAVULANATE I 16 AMPICILLIN I 16 AMP/SULBACTAM S 8 CEFAZOLIN NR <=4 2 CEFEPIME S <=1 CEFTRIAXONE S <=1 CIPROFLOXACIN S <=0.25 ERTAPENEM S <=0.5 GENTAMICIN S <=1 IMIPENEM S <=0.25 LEVOFLOXACIN S <=0.12 NITROFURANTOIN S <=16 PIP/TAZOBACTAM S <=4 TOBRAMYCIN S <=1 TRIMETHOPRIM/SULFA S <=20 S=Susceptible I=Intermediate R=Resistant * = Not Tested NR = Not Reported NN = See Therapy Comments THERAPY COMMENTS Note 1: For infections other than uncomplicated UTI caused by E. coli, K. pneumoniae or P. mirabilis: Cefazolin is resistant if MCKAY > or = 8 mcg/mL. (Distinguishing susceptible versus intermediate for isolates with MCKAY < or = 4 mcg/mL requires additional testing.) Note 2: For uncomplicated UTI caused by E. coli, K. pneumoniae or P. mirabilis: Cefazolin is susceptible if MCKAY <32 mcg/mL and predicts susceptible to the oral agents cefaclor, cefdinir, cefpodoxime, cefprozil, cefuroxime, cephalexin and loracarbef. Performed By: #### 3 95 #### [facility] [address], [address] [place] [address] Grubber: Alvarado Rodríguez MD COMPREHENSIVE METABOLIC PANE [facility] 09-22-2020 Albumin [Mass/Vol] 4.1 g/dL Normal 3.6-5.1 [facility] Comment on above: Performed By: #### 1 0231, 29636, 20063, 7600 #### [facility] of [address], [address] [place] [address] Grubber: Alvarado Rodríguez MD Albumin/Globulin [Mass ratio] 1.5 {ratio} Normal 1.0-2.5 [facility] Comment on above: Performed By: #### 1 0231, 21202, 30304, 7600 #### [facility] of [address], [address] [place] [address] Grubber: Alvarado Rodríguez MD ALP [Catalytic activity/Vol] 163 U/L High 37-153 [facility] Comment on above: Performed By: #### 1 0231, 77893, 89375, 7600 #### [facility] of [address], [address] [place] [address] Grubber: Alvarado Rodríguez MD ALT [Catalytic activity/Vol] 29 U/L Normal 6-29 [facility] Comment on above: Performed By: #### 1 0231, 46592, 72346, 7600 #### [facility] of [place] [address] Grubber: Alvarado Rodríguez MD AST [Catalytic activity/Vol] 24 U/L Normal 10-35 [facility] Comment on above: Performed By: #### 1 0231, 88273, 53874, 7600 #### [facility] of [address], [address] [place] [address] Grubber: Alvarado Rodríguez MD Bilirubin [Mass/Vol] 0.3 mg/dL Normal 0.2-1.2 [facility] Comment on above: Performed By: #### 1 0231, 19924, 47836, 7600 #### [facility] of [address], [address] [place] [address] Grubber: Alvarado Rodríguez MD BUN/CREATININE RATIO NOT APPLICABLE Normal 6-22 [facility] Comment on above: Performed By: #### 1 0231, 42152, 47676, 7600 #### [facility] [address], [address] [place] [address] Grubber: Alvarado Rodríguez MD Calcium [Mass/Vol] 9.1 mg/dL Normal 8.6-10.4 [facility] Comment on above: Performed By: #### 1 0231, 77075, 32983, 7600 #### [facility] [address], [address] [place] [address] Grubber: Alvarado Rodríguez MD Chloride [Moles/Vol] 106 mmol/L Normal 98-110 [facility] Comment on above: Performed By: #### 1 0231, 39493, 75241, 7600 #### [facility] [address], [address] [place] [address] Grubber: Alvarado Rodríguez MD CO2 [Moles/Vol] 26 mmol/L Normal 20-32 [facility] Comment on above: Performed By: #### 1 0231, 02242, 05439, 7600 #### [facility] [place] [address] Grubber: Alvarado Rodríguez MD Creatinine [Mass/Vol] 0.81 mg/dL Normal 0.50-0.99 [facility] Comment on above: Result Comment: For patients >49 years of age, the reference limit for Creatinine is approximately 13% higher for people identified as -Tongan. Performed By: #### 1 0231, 70294, 91778, 7600 #### [facility] [address], [address] [place] [address] Grubber: Alvarado Rodríguez MD eGFR NON-AFR. AUSTRALIAN 76 mL/min/1.73m2 Normal > OR = 60 [facility] Comment on above: Performed By: #### 1 0231, 94741, 84989, 7600 #### [facility] [place] [address] Grubber: Alvarado Rodríguez MD GFR/1.73 sq M.predicted among blacks MDRD (S/P/Bld) [Vol rate/Area] 88 mL/min/{1.73_m2} Normal > OR = 60 [facility] Comment on above: Performed By: #### 1 0231, 83451, 64767, 7600 #### [facility] [place] [address] Grubber: Alvarado Rodríguez MD Globulin (S) [Mass/Vol] 2.7 g/dL Normal 1.9-3.7 [facility] Comment on above: Performed By: #### 1 0231, 95293, 18287, 7600 #### [facility] [place] [address] Grubber: Alvarado Rodríguez MD Glucose [Mass/Vol] 131 mg/dL Normal 65-139 [facility] Comment on above: Result Comment: Non-fasting reference interval For someone without known diabetes, a glucose value >125 mg/dL indicates that they may have diabetes and this should be confirmed with a follow-up test. Performed By: #### 1 0231, 44309, 71844, 7600 #### [facility] [place] [address] Grubber: Alvarado Rodríguez MD Potassium [Moles/Vol] 4.3 mmol/L Normal 3.5-5.3 [facility] Comment on above: Performed By: #### 1 0231, 32775, 21970, 7600 #### [facility] [place] [address] Grubber: Alvarado Rodríguze MD Protein [Mass/Vol] 6.8 g/dL Normal 6.1-8.1 [facility] Comment on above: Performed By: #### 1 0231, 91970, 81556, 7600 #### [facility] [place] [address] Grubber: Alvarado Rodríguez MD Sodium [Moles/Vol] 138 mmol/L Normal 135-146 [facility] Comment on above: Performed By: #### 1 0231, 84897, 62394, 7600 #### [facility] [address], [address] [place] [address] Grubber: Alvarado Rodríguez MD Urea nitrogen [Mass/Vol] 11 mg/dL Normal 7-25 [facility] Comment on above: Performed By: #### 1 0231, 71754, 27594, 7600 #### [facility] [address], [address] [place] [address] Grubber: Alvarado Rodríguez MD LIPID PANEL, [facility] 09-12 Cholesterol [Mass/Vol] 188 mg/dL Normal <200 [facility] Comment on above: Order Comment: FASTI NG:NO FASTING: NO Performed By: #### 1 0231, 38112, 38537, 7600 #### [facility] [address], [address] [place] [address] Grubber: Alvarado Rodríguez MD Cholesterol in HDL [Mass/Vol] 49 mg/dL Low > OR = 50 [facility] Comment on above: Order Comment: FASTI NG:NO FASTING: NO Performed By: #### 1 0231, 89888, 47055, 7600 #### [facility] [address], [address] [place] [address] Grubber: Alvarado Rodríguez MD Cholesterol in LDL [Mass/Vol] 98 mg/dL Normal [facility] Comment on above: Order Comment: FASTI NG:NO FASTING: NO Result Comment: Refe rence range: <100 Desirable range <100 mg/dL for primary prevention; <70 mg/dL for patients with CHD or diabetic patients with > or = 2 CHD risk factors. LDL-C is now calculated using the Viviane calculation, which is a validated novel method providing better accuracy than the Friedewald equation in the estimation of LDL-C. Neto BOWMAN et al. MARLENY. 2013;310(19): 3900-5746 (http://education.[employer]/faq/NPN782) Performed By: #### 1 0231, 62045, 21592, 7600 #### [facility] [address], [address] [place] [address] Grubber: Alvarado Rodríguez MD Cholesterol.total/Ch olesterol in HDL [Mass ratio] 3.8 {ratio} Normal <5.0 [facility] Comment on above: Order Comment: FASTI NG:NO FASTING: NO Performed By: #### 1 0231, 66724, 13275, 7600 #### [facility] [address], [address] [place] [address] Grubber: Alvarado Rodríguez MD NON HDL CHOLESTEROL 139 mg/dL (calc) High <130 [facility] Comment on above: Order Comment: FASTI NG:NO FASTING: NO Result Comment: For patients with diabetes plus 1 major ASCVD risk factor, treating to a non-HDL-C goal of <100 mg/dL (LDL-C of <70 mg/dL) is considered a therapeutic option. Performed By: #### 1 0231, 09726, 49524, 7600 #### [facility] [address], [address] [place] [address] Grubber: Alvarado Rodríguez MD Triglyceride [Mass/Vol] 304 mg/dL High <150 [facility] Comment on above: Order Comment: FASTI NG:NO FASTING: NO Result Comment: If a non-fasting specimen was collected, consider repeat triglyceride testing on a fasting specimen if clinically indicated. Jason et al. J. of Clin. Lipidol. 2015;9:129-169. Performed By: #### 1 0231, 76060, 27511, 7600 #### [facility] [address], [address] [place] [address] Grubber: Alvarado Rodríguez MD TSH+FREE T4on 09-22-2020 Free T4 [Mass/Vol] 1.0 ng/dL Normal 0.8-1.8 [facility] Comment on above: Performed By: #### 1 0231, 83394, 69909, 7600 #### [facility] [address], [address] [place] [address] Grubber: Alvarado Rodríguez MD TSH Qn 1.89 m[IU]/L Normal 0.40-4.50 [facility] Comment on above: Performed By: #### 1 0231, 81201, 12019, 7600 #### [facility] [address], [address] [place] [address] Grubber: Alvarado Rodríguez MD VITAMIN D,25-OH,TOTAL,IAon 0 09-22-2020 VITAMIN D,25-OH,TOTAL,IA 19 ng/mL Low 30-100 [facility] Comment on above: Result Comment: Jud min D Status 25-OH Vitamin D: Deficiency: <20 ng/mL Insufficiency: 20 - 29 ng/mL Optimal: > or = 30 ng/mL For 25-OH Vitamin D testing on patients on D2-supplementation and patients for whom quantitation of D2 and D3 fractions is required, the QuestAssureD(TM) 25-OH VIT D, (D2,D3), LC/MS/MS is recommended: order code 33939 (patients >2yrs). See Note 1 Note 1 For additional information, please refer to http://education.[employer]/faq/NSF277 (This link is being provided for informational/ educational purposes only.) Performed By: #### 1 0231, 28291, 22107, 3360 #### [facility] [address], [address] [place], [place] [id number] Grubber: Alvarado Rodríguez MD [facility] DIGITAL SCREEN PHIL Turner 03-31-2020 [facility] DIGITAL SCREEN BILATERAL EXAMINATION: SCREENING DIGITAL BILATERAL MAMMOGRAM WITH TOMOSYNTHESIS, 03/31/2020 TECHNIQUE: Screening mammography was performed with tomosynthesis including MLO and CC views of the bilateral breasts. Computer aided detection was used for the interpretation of this exam. COMPARISON: 16 January 2019, [facility]; 23 November 2017; 26 October 2015, [facility] HISTORY: Screening. Negative family history of breast cancer. Negative history of hormonal replacement therapy. No prior breast interventions. FINDINGS: The breasts are composed of scattered fibroglandular density. No skin thickening, nipple contour changes, malignant type microcalcifications, areas of architectural distortion, or significant interval changes are noted. IMPRESSION: No evidence of malignancy. Advise annual screening mammography. BI-RADS 1 BIRADS: BIRADS - CATEGORY 1 Negative, no evidence of malignancy in either breast. OVERALL ASSESSMENT - NEGATIVE A letter of notification will be sent to the patient regarding the results. RECOMMENDATION: Routine bilateral annual screening mammography is recommended. Follow-up screening mammogram in 1 year is advised. Interpreted by: Kitty Pereira MD Signed by: Kitty Pereira MD 03/31/20 Final result Normal [facility] No evidence of malignancy. Advise annual screening mammography. BI-RADS 1 BIRADS: BIRADS - CATEGORY 1 Negative, no evidence of malignancy in either breast. OVERALL ASSESSMENT - NEGATIVE A letter of notification will be sent to the patient regarding the results. RECOMMENDATION: Routine bilateral annual screening mammography is recommended. Follow-up screening mammogram in 1 year is advised. [employer] Phone: EXAMINATION: SCREENING DIGITAL BILATERAL MAMMOGRAM WITH TOMOSYNTHESIS, 03/31/2020 TECHNIQUE: Screening mammography was performed with tomosynthesis including MLO and CC views of the bilateral breasts. Computer aided detection was used for the interpretation of this exam. COMPARISON: 16 January 2019, [facility]; 23 November 2017; [facility] HISTORY: Screening. Negative family history of breast cancer. Negative history of hormonal replacement therapy. No prior breast interventions. FINDINGS: The breasts are composed of scattered fibroglandular density. No skin thickening, nipple contour changes, malignant type microcalcifications, areas of architectural distortion, or significant interval changes are noted. [employer] Phone: [place], [facility] Incoming Radiant Results From Schedulicity/[employer]Now - 03/31/2020 3:20 PM EST EXAMINATION: SCREENING DIGITAL BILATERAL MAMMOGRAM WITH TOMOSYNTHESIS, 03/31/2020 TECHNIQUE: Screening mammography was performed with tomosynthesis including MLO and CC views of the bilateral breasts. Computer aided detection was used for the interpretation of this exam. COMPAR[facility]: 16 [facility]; 23 November 2017; 26 October 2015, [facility] HISTORY: Screening. Negative family history of breast cancer. Negative history of hormonal replacement therapy. No prior breast interventions. FINDINGS: The breasts are composed of scattered fibroglandular density. No skin thickening, nipple contour changes, malignant type microcalcifications, areas of architectural distortion, or significant interval changes are noted. IMPRESSION: No evidence of malignancy. Advise annual screening mammography. BI-RADS 1 BIRADS: BIRADS - CATEGORY 1 Negative, no evidence of malignancy in either breast. OVERALL ASSESSMENT - NEGATIVE A letter of notification will be sent to the patient regarding the results. RECOMMENDATION: Routine bilateral annual screening mammography is recommended. Follow-up screening mammogram in 1 year is advised. [employer] Phone: CULTURE, URINE, ROUTINEon CULTURE, URINE, ROUTINE SEE NOTE Abnormal [facility] Comment on above: Result Comment: CULTURE, URINE, ROUTINE Micro Number: [id number] Test Status: Final Specimen Source: NOT GIVEN Specimen Quality: Adequate Result: Greater than 100,000 CFU/mL of Escherichia coli E.coli INT MCKAY AMOX/CLAVULANATE S <=2 AMPICILLIN S <=2 AMP/SULBACTAM S <=2 CEFAZOLIN NR <=4 2 CEFEPIME S <=1 CEFTRIAXONE S <=1 CIPROFLOXACIN S <=0.25 ERTAPENEM S <=0.5 GENTAMICIN S <=1 IMIPENEM S <=0.25 LEVOFLOXACIN S <=0.12 NITROFURANTOIN S <=16 PIP/TAZOBACTAM S <=4 TOBRAMYCIN S <=1 TRIMETHOPRIM/SULFA S <=20 S=Susceptible I=Intermediate R=Resistant * = Not Tested NR = Not Reported NN = See Therapy Comments THERAPY COMMENTS Note 1: For infections other than uncomplicated UTI caused by E. coli, K. pneumoniae or P. mirabilis: Cefazolin is resistant if MCKAY > or = 8 mcg/mL. (Distinguishing susceptible versus intermediate for isolates with MCKAY < or = 4 mcg/mL requires additional testing.) Note 2: For uncomplicated UTI caused by E. coli, K. pneumoniae or P. mirabilis: Cefazolin is susceptible if MCKAY <32 mcg/mL and predicts susceptible to the oral agents cefaclor, cefdinir, cefpodoxime, cefprozil, cefuroxime, cephalexin and loracarbef. Performed By: #### 3 95 #### [facility] [address], [address] [place] [address] Grubber: Alvarado Rodríguez MD MIGUELINA DIGITAL SCREEN W OR WO C AD BILATERALon 2019 No mammographic evidence of malignancy. BI-RADS 1 BIRADS: BIRADS - CATEGORY 1 Negative, no evidence of malignancy. Normal interval follow-up is recommended in 12 months. OVERALL ASSESSMENT - NEGATIVE A letter of notification will be sent to the patient regarding the results. [employer] recommends annual mammograms for women 40 years and older. [place], [place] EXAMINATION: BILATERAL DIGITAL SCREENING MAMMOGRAM, 01/16/2019 TECHNIQUE: CC and MLO views of the left and right breasts were obtained. Computer aided detection was utilized in the interpretation of this exam. 3D tomosynthesis images were obtained. COMPARISON: November 23, 2017, October 26, 2015 HISTORY: Screening. FINDINGS: The breasts are composed of scattered fibroglandular tissue. There is no suspicious mass, suspicious microcalcification, or area of architectural distortion. [place], [place] Tayo, [facility] Incoming Radiant Results From Schedulicity/[employer] - 2019 8:27 AM EST EXAMINATION: BILATERAL DIGITAL SCREENING MAMMOGRAM, 01/16/2019 TECHNIQUE: CC and MLO views of the left and right breasts were obtained. Computer aided detection was utilized in the interpretation of this exam. 3D tomosynthesis images were obtained. COMPARISON: November 23, 2017, October 26, 2015 HISTORY: Screening. FINDINGS: The breasts are composed of scattered fibroglandular tissue. There is no suspicious mass, suspicious microcalcification, or area of architectural distortion. IMPRESSION: No mammographic evidence of malignancy. BI-RADS 1 BIRADS: BIRADS - CATEGORY 1 Negative, no evidence of malignancy. Normal interval follow-up is recommended in 12 months. OVERALL ASSESSMENT - NEGATIVE A letter of notification will be sent to the patient regarding the results. [employer] recommends annual mammograms for women 40 years and older. [place], [place] Vital Signs Date Time Vital Sign Value Performing Clinician Facility 03-11-2024 11:39-0500 Body height 165.1 cm Shannon Tovar MD Work Phone: [facility] 03-11-2024 11:39-0500 Body mass index (BMI) [Ratio] 26.13 kg/m2 Shannon Tovar MD Work Phone: [facility] 03-11-2024 11:39-0500 Body weight 71.22 kg Shannon Tovar MD Work Phone: [facility] 03-11-2024 11:39-0500 Diastolic blood pressure 67 mm[Hg] Shannon Tovar MD Work Phone: [facility] 03-11-2024 11:39-0500 Heart rate 68 /min Shannon Tovar MD Work Phone: [facility] 03-11-2024 11:39-0500 Systolic blood pressure 96 mm[Hg] Shannon Tovar MD Work Phone: [facility] 02-25-2024 09:45-0500 Body height 165.1 cm Mac Vigil CAD DRAFTER-CULTURE MEDIA LABORATORY ASSISTANT Work Phone: [facility] 02-25-2024 09:45-0500 Body mass index (BMI) [Ratio] 26.26 kg/m2 Mac Vigil CAD DRAFTER-CULTURE MEDIA LABORATORY ASSISTANT Work Phone: [facility] 02-25-2024 09:45-0500 Body temperature 97.81 [degF] Mac Vigil CAD DRAFTER-CULTURE MEDIA LABORATORY ASSISTANT Work Phone: [facility] 02-25-2024 09:45-0500 Body weight 71.58 kg Mac Vigil CAD DRAFTER-CULTURE MEDIA LABORATORY ASSISTANT Work Phone: [facility] 02-25-2024 09:45-0500 Diastolic blood pressure 70 mm[Hg] Mac Vigil CAD DRAFTER-CULTURE MEDIA LABORATORY ASSISTANT Work Phone: [facility] 02-25-2024 09:45-0500 Heart rate 75 /min Mac Vigil CAD DRAFTER-CULTURE MEDIA LABORATORY ASSISTANT Work Phone: [facility] 02-25-2024 09:45-0500 Respiratory rate 18 /min Mac Vigil CAD DRAFTER-CULTURE MEDIA LABORATORY ASSISTANT Work Phone: [facility] 02-25-2024 09:45-0500 SaO2% (BldA) [Mass fraction] 98 % Mac Vigil APRN-CULTURE MEDIA LABORATORY ASSISTANT Work Phone: [facility] 02-25-2024 09:45-0500 Systolic blood pressure 120 mm[Hg] Mac Vigil APRNCULTURE MEDIA LABORATORY ASSISTANT Work Phone: [facility] Encounters Encounter Date Encounter Type Care Provider Facility Start: 03-13-2024 End: 03-13-2024 Clinisync Result Encounter Shannon Tovar MD Work Phone: [facility] Unsolicited Start: 03-13-2024 End: 03-13-2024 Clinisync Result Encounter Shannon Tovar MD Work Phone: [facility] Unsolicited Start: 03-12-2024 End: 03-13-2024 Clinisync Result Encounter Shannon Tovar MD Work Phone: [facility] External Department Unsolicited Start: 03-12-2024 End: 03-13-2024 Clinisync Result Encounter Shannon Tovar MD Work Phone: [facility] Unsolicited Start: 03-11-2024 End: 03-11-2024 Bamboo flowsheet Shannon Tovar MD Work Phone: [facility] Start: 03-11-2024 End: 03-11-2024 Bamboo flowsheet Shannon Tovar MD Work Phone: [facility] Start: 03-11-2024 End: 03-11-2024 Office outpatient new 45 minutes Shannon Tovar MD Work Phone: [facility] Comment on above: Pharyngeal dysphagia (Primary Dx); Hyperactive gag reflex Start: 03-11-2024 End: 03-11-2024 ambulatory SHANNON TOVAR Not Available Start: 03-03-2024 End: 03-03-2024 Telephone encounter Raiza Barth [facility] - [facility] Start: 02-25-2024 End: 02-25-2024 Office outpatient visit 15 minutes Mac Vigil CAD DRAFTER-CULTURE MEDIA LABORATORY ASSISTANT Work Phone: [facility] - [facility] Comment on above: Sore throat (Primary Dx); Acute non-recurrent pansinusitis; Laryngopharyngeal reflux Start: 02-25-2024 End: 02-25-2024 ambulatory [facility] Start: 02-19-2024 End: 02-22-2024 Telephone encounter Hill Pedro [facility] Internal Medicine - Family Medicine Start: 02-11-2024 End: 02-11-2024 Telephone encounter Mac Vigil CAD DRAFTER-CULTURE MEDIA LABORATORY ASSISTANT Work Phone: [facility] - Family Medicine Start: 01-14-2024 End: 01-14-2024 Orders Only Mac Vigil CAD DRAFTER-CULTURE MEDIA LABORATORY ASSISTANT Work Phone: [facility] Internal Medicine - Family Medicine Comment on above: Encounter for screen ing mammogram for malignant neoplasm of breast (Primary Dx) Start: 11-28-2023 End: 11-29-2023 Refill Kelly Bruno [facility] Internal Medicine - Family Medicine Comment on above: Osteoporosis of lumb ar spine Start: 10-01-2023 End: 10-01-2023 ambulatory [facility] Start: 06-18-2023 End: 06-19-2023 ambulatory [facility] Start: 06-18-2023 End: 06-18-2023 ambulatory [facility] Start: 05-31-2023 End: 05-31-2023 ambulatory NATALEE DE LOS SANTOS Not Available Start: 05-17-2023 End: 05-17-2023 ambulatory NATALEE DE LOS SANTOS Not Available Start: 05-07-2023 Telephone encounter Kitty Fritz CAD DRAFTER-MUSIC AD[employer] Work Phone: [facility] Internal Medicine - Family Medicine Start: 03-08-2023 Refill Kitty Fritz CAD [employer]MUSIC [employer] Work Phone: [facility] Internal Medicine - Family Medicine Start: 03-08-2023 Refill Kitty Fritz CAD DRAFTER[employer]MUSIC AD[employer] Work Phone: [facility] Internal Medicine - [facility] Start: 02-22-2023 Refill Kitty Fritz CAD DRAFTER-MUSIC ADAPTER Work Phone: Marissa Vaca [place] [facility] Start: 03-31-2020 End: 04-03-2020 Patient encounter procedure BRIAN Vaca [facility] Start: 03-31-2020 End: 04-02-2020 Subsequent hospital visit by physician [facility] Mammography Comment on above: Breast cancer screen ing by mammogram Start: 01-16-2019 End: 01-18-2019 Subsequent hospital visit by physician [facility] Mammography Comment on above: Screening breast exa mination Procedures Date Procedure Procedure Detail Performing Clinician Start: 03-13-2024 Ct soft tissue neck w/contrast material Shannon Tovar MD Work Phone: Start: 03-13-2024 [facility] CREATININE Shannon Tovar MD Work Phone: Start: 03-12-2024 XR CHEST 2V Shannon alonzo MD Work Phone: Start: 03-12-2024 ALL CBC WITH AUTO DIFF Shannon Tovar MD Work Phone: Start: 03-12-2024 ECG 12-LEAD Shannon alnozo MD Work Phone: Start: 02-25-2024 Iaadiadoo streptococ cus group a Mac Vigil CAD DRAFTER-CULTURE MEDIA LABORATORY ASSISTANT Work Phone: Start: 02-25-2024 POCT INFLUENZA A/INF LUENZA B/SARS-COV-2 VERITOR Mac Vigil CAD DRAFTER-CULTURE MEDIA LABORATORY ASSISTANT Work Phone: Start: 06-18-2023 Adult depression scr eening assessment Kelly Bruno [facility] Start: 12-20-2022 Mammography Kitty Fritz [employer]MUSIC AD[employer] Work Phone: Start: 11-29-2022 Adult depression scr eening assessment Kitty Fritz CAD DRAFTER-MUSIC ADAPTER Work Phone: Start: 03-31-2020 Screening mammograph y bi 2-view breast inc cad Kitty Fritz Start: 01-16-2019 Screening digital br east tomosynthesis bi Kitty Fritz Work Phone: Plan of Treatment Date Care Activity Detail Author Start: 01-14-2029 DTaP,Tdap and Td Vaccines (2 - Td or Tdap) DTaP,Tdap and Td Vaccines (2 - Td or Tdap) [facility] Start: 01-14-2029 DTaP/Tdap/Td vaccine (2 - Td) DTaP/Tdap/Td vaccine (2 - Td) [place] Start: 02-24-2025 Adult BMI Follow Up Plan Adult BMI Follow Up Plan [facility] Start: 02-24-2025 Adult BMI Screening Adult BMI Screen ing [facility] Start: 02-24-2025 Tobacco Screening Tobacco Screening [facility] Start: 02-10-2025 Screening for malign ant neoplasm of colon [facility] Start: 10-01-2024 End: 10-01-2024 Patient encounter procedure 10/01/2024 4:00 PM EDT Office Visit [facility] Internal Medicine - Family Medicine [address] [place] [id number] Mac Vigil, CAD DRAFTER-CULTURE MEDIA LABORATORY ASSISTANT [address] [place] [address] [facility] Internal Medicine - Family Medicine Start: 09-30-2024 Adult BMI Follow Up Plan Adult BMI Follow Up Plan [facility] Start: 09-30-2024 Adult BMI Screening Adult BMI Screen ing [facility] Start: 09-30-2024 Tobacco Screening Tobacco Screening [facility] Start: 06-30-2024 End: 06-30-2024 Patient encounter procedure 06/30/2024 4:00 PM EDT Office Visit [facility] Internal Medicine - Family Medicine [address] [place] [address] Mac Vigil, CAD DRAFTER-CULTURE MEDIA LABORATORY ASSISTANT [address] [place] [address] [facility] Internal Medicine - Family Medicine Start: 06-17-2024 Depression Screening Depression Scre ening [facility] Start: 06-17-2024 Fall Risk Screening Fall Risk Screen ing [facility] Start: 04-09-2024 End: 04-09-2024 Patient encounter procedure 04/09/2024 3:50 PM EST Office Visit [facility] [address] [facility] [address] [place] [address] Shannon Tovar MD [address] [facility] [address] [place] [address] [facility] Start: 03-11-2024 End: 03-11-2024 Patient encounter procedure 03/11/2024 11:30 AM EST Office Visit [facility] [address] [facility] [address] [place] [address] Shannon Tovar MD [address] [facility] [address] [place] [address] Arrived [facility] Comment on above: Arrived Start: 02-25-2024 End: 02-25-2024 Patient encounter procedure 02/25/2024 9:40 AM EST [facility] - Family Medicine [address] [place] [address] Mac Vigil, CAD DRAFTER-CULTURE MEDIA LABORATORY ASSISTANT [address] [place] [address] [facility] Internal Medicine - [facility] Start: 01-14-2024 End: 01-13-2025 DBT Breast - bilateral screening Mammography screening bilateral with CAD Imaging Routine Encounter for screening mammogram for malignant neoplasm of breast Expected: 01/14/2024, Expires: 01/13/2025 [facility] Work Phone: Comment on above: Expected: 01/14/2024 , Expires: 01/13/2025 Start: 12-21-2023 Screening for malign ant neoplasm of breast Mammogram [facility] Start: 11-30-2023 Adult BMI Follow Up Plan Adult BMI Follow Up Plan [facility] Start: 11-30-2023 Adult BMI Screening Adult BMI Screen ing [facility] Start: 11-30-2023 Depression Screening Depression Scre ening [facility] Start: 11-30-2023 Fall Risk Screening Fall Risk Screen ing [facility] Start: 11-30-2023 Tobacco Screening Tobacco Screening [facility] Start: 10-14-2023 Influenza vaccination Influenza Vacc ine [facility] Start: 06-18-2023 End: 06-18-2023 Patient encounter procedure 06/18/2023 4:00 PM EDT [facility] [address] [place] [address] Kitty Fritz, CAD DRAFTER-MUSIC ADAPTER [address] [place] [address] [facility] Internal Medicine - Family [facility] Start: 03-31-2022 Screening for malign ant neoplasm of breast Breast cancer screen [facility] [employer] [employer] Phone: Start: 12-31-2021 Pneumococcal Vaccine : 65+ Years (2 of 2 - PCV) Pneumococcal Vaccine: 65+ Years (2 of 2 - PCV) [facility] Start: 01-16-2021 Breast cancer screen Breast cancer s [facility] [place] Start: 04-28-2020 COVID-19 Vaccine (2 of 2 - Moderna series) COVID-19 Vaccine (2 of 2 - Moderna series) [employer] Phone: Start: 01-18-2020 Pneumococcal 65+ yea rs Vaccine (1 of 1 - PPSV23) Pneumococcal 65+ years Vaccine (1 of 1 - PPSV23) [employer] Phone: Start: 10-13-2018 Influenza vaccination Flu vaccine (# 1) [place], [place] Start: 2010 Screening for osteoporosis DEXA (modify frequency per FRAX score) [facility] Work Phone: Start: 2005 Colon cancer screen colonoscopy Colon cancer screen colonoscopy [place], [place] Start: 2005 Screening for malign ant neoplasm of colon Colon cancer screen colonoscopy [facility] Work Phone: Start: 1995 Lipid panel Lipid screen [facility] [employer] Phone: Start: 1995 Lipid screen Lipid screen [place], [place] Start: 01-18-1976 Cervical cancer screen Cervical canc er screen [place], [place] Start: 01-18-1976 Screening for malign ant neoplasm of cervix Cervical cancer screen [facility] [employer] Phone: Start: 1970 HIV screen HIV screen [place], [place] Start: 1970 HIV screening HIV screen [facility] Work Phone: Start: 1955 Hepatitis C screen Hepatitis C scree n [place], [place] Start: 1955 Hepatitis C screening Hepatitis C sc brittani [facility] Work Phone: Start: 1955 Medicare Annual Wellness Visit Medicare Annual Wellness Visit [facility] Start: 1955 Screening for malign ant neoplasm of colon [facility] Immunizations Immunization Date Immunization Notes Care Provider Fa cili 12-10-2022 influenza virus vacc ine, unspecified formulation Kelly Bruno [facility] [employer] [facility] 12-17-2021 Influenza, High-dose , Quadrivalent Kitty Fritz CAD DRAFTER-MUSIC ADAPTER Work Phone: [facility] [employer] [facility] 12-31-2020 Influenza, High-dose , Quadrivalent Kitty Fritz CAD DRAFTER-MUSIC ADAPTER Work Phone: [facility] [employer] [facility] 12-31-2020 pneumococcal polysaccharide vaccine, 23 valent Kitty Fritz CAD DRAFTER-MUSIC ADAPTER Work Phone: [facility] 12-10-2019 pneumococcal polysaccharide vaccine, 23 valent Kitty Fritz CAD DRAFTER-MUSIC ADAPTER Work Phone: [facility] 12-10-2019 Seasonal, quadrivale nt, recombinant, injectable influenza vaccine, preservative free Kitty Fritz CAD DRAFTER-MUSIC ADAPTER Work Phone: [facility] 03-22-2019 zoster vaccine recombinant Kitty Fritz CAD DRAFTER-MUSIC ADAPTER Work Phone: [facility] 01-16-2019 Seasonal, quadrivale nt, recombinant, injectable influenza vaccine, preservative free Kitty Fritz CAD DRAFTER-MUSIC ADAPTER Work Phone: [facility] 01-14-2019 tetanus toxoid, redu shey diphtheria toxoid, and acellular pertussis vaccine, adsorbed Kitty Fritz CAD DRAFTER-MUSIC ADAPTER Work Phone: [facility] 01-02-2019 zoster vaccine recombinant Kitty Fritz CAD DRAFTER-MUSIC ADAPTER Work Phone: [facility] 01-01-2019 zoster vaccine recombinant Kitty Fritz CAD DRAFTER-MUSIC ADAPTER Work Phone: [facility] 01-09-2018 Influenza, injectabl e, Madin [place] Canine Kidney, preservative free, quadrivalent Kitty Fritz CAD DRAFTER-MUSIC ADAPTER Work Phone: [facility] 01-09-2018 zoster vaccine recombinant Kitty Frtiz CAD DRAFTER-MUSIC ADAPTER Work Phone: [facility] 01-09-2017 Influenza, injectabl e, Madin [place] Canine Kidney, preservative free, quadrivalent Kitty Fritz CAD DRAFTER-MUSIC ADAPTER Work Phone: [facility] 05-22-2016 influenza, injectabl e, quadrivalent, preservative free Kitty Fritz CAD DRAFTER-MUSIC ADAPTER Work Phone: [facility] 03-24-2016 influenza, seasonal, injectable, preservative free Kitty Fritz CAD DRAFTER-MUSIC ADAPTER Work Phone: [facility] 11-19-2013 influenza, seasonal, injectable, preservative free Kitty Fritz CAD DRAFTER-MUSIC ADAPTER [facility] Payers Date Payer Category Payer Private Health Insurance [id number] 2021 Managed Care Other (unspecified) [id number] 2021 Private Health Insurance [id number] 2020 Private Health Insurance [id number] 2018 Unknown [employer] [address] xxxxxxxxxxxx 2018-Present [phone] [address] [place] [address] xxxxxxxxxxxx [id number] 2015 Unknown [id number] 1955 Unknown [id number] 1955 Unknown [id number] 1955 Unknown [id number] 1955 Unknown [id number] 1955 Unknown [id number] 1955 Unknown [id number] 1955 Unknown [id number] 1955 Unknown [id number] 1955 Unknown [id number] Social History Date Type Detail Facility Tobacco smoking stat us NHIS Unknown if ever smoked [employer] [facility]ESUS Start: 1955 Sex Assigned At Not on file [place] Exposure to SARS-CoV -2 (event) Not sure [employer] Work Phone: Start: 11-15-2016 End: 05-16-2023 Tobacco smoking status NHIS Never smoked tobacco [facility] Start: 11-15-2016 End: 05-16-2023 Tobacco use and exposure Smokeless tobacco non-user [facility] Start: 12-20-2022 End: 05-31-2023 Alcohol intake Current drinker of alcohol (finding) [facility] Start: 11-29-2022 End: 03-11-2024 History of Social function [facility] Start: 11-29-2022 End: 03-11-2024 Tobacco use panel [facility] Adolescent depressio n screening assessment 0 [facility] Start: 11-08-2021 Alcohol Comment Occasional [facility] Start: 09-28-2021 Gender identity Identifies as female gender (finding) [facility] Start: 09-17-2014 Sex Female (finding) [facility] Start: 03-11-2024 Alcoholic beverage intake Ex-drinker (finding) [facility] Medical Equipment Procedure Code Equipment Code Equipment Origin al Text Equipment Identifier Dates [facility] 4.75 - Sna - [id number] Start: 01-16-2017 Clinical Notes 05-07-2023 to 03-11-2024 Shannon Tovar MD - 03/11/2024 11:30 AM ESTTelephone Encounter - Raiza Barth CMA - 03/03/2024 9:41 AM ESTTelephone Encounter - Mac Vigil APRN-CULTURE MEDIA LABORATORY ASSISTANT - 03/03/2024 9:41 AM EST Note Date & Type Note Facility 03-11-2024 History of Presen t illness Narrative Images from the original note were not included. Subjective Patient ID: Ella Royal is a 69 y.o. female who presents for Sore Throat Pt states she has had throat pain and dysphagia since 02/01. Tx at with prednisone. Pain resolved but dysphagia persists. PCP tx with zpack and prednisone, and changed reflux regimen to have pt take pantoprazole in the morning and pepcid HS. Still can only swallow on the right side of my throat . Review of Systems All other systems reviewed and are negative. Family History Problem Relation Name Age of Onset Thyroid disease Mother Josie Ramirez Active Ambulatory Problems Diagnosis Date Noted Allergic rhinitis 11/08/2021 Biceps tendinitis of left upper extremity 03/06/2024 Chronic pain 11/08/2021 Closed traumatic dislocation of joint of shoulder region 11/08/2021 Complete tear of right rotator cuff 03/06/2024 COPD (chronic obstructive pulmonary disease) ([facility]) 01/11/2022 Essential hypertension ([facility]) 03/06/2024 History of arthroscopy of right shoulder 11/08/2021 Hypokalemia 11/08/2021 Hypothyroidism ([facility]) 11/08/2021 Internal derangement of left shoulder 11/08/2021 Laryngopharyngeal reflux 11/08/2021 Low vitamin D level 09/22/2020 Lumbago with sciatica 11/08/2021 Osteoporosis of lumbar spine ([facility]) 03/08/2022 Renal cyst 11/15/2016 Shoulder joint pain 11/08/2021 Subluxation of shoulder joint 11/08/2021 Tear of left rotator cuff 03/06/2024 Resolved Ambulatory Problems Diagnosis Date Noted No Resolved Ambulatory Problems Past Medical History: Diagnosis Date GERD (gastroesophageal reflux disease) Hypertension ([facility]) Past Surgical History: Procedure Laterality Date COLONOSCOPY 2012 [place] GUIDED INJECTION SHOULDER RIGHT Right 08/28/2016 [place] GUIDED INJECTION SHOULDER RIGHT 08/28/2016 MR SHOULDER ARTHROGRAM RIGHT W FL GUIDED INJECTION Right 08/28/2016 MR SHOULDER ARTHROGRAM RIGHT W [place] GUIDED INJECTION 08/28/2016 ROTATOR CUFF REPAIR Right 2008 Dr Nery Collier SHOULDER SURGERY Right 01/16/2017 Arthroscopy, Dr Vargas TUBAL LIGATION Allergies Allergen Reactions Lisinopril Cough Current Outpatient Medications on File Prior to Visit Medication Sig Dispense Refill Arnuity Ellipta 100 MCG/ACT inhaler Inhale 1 puff in the morning. atenolol (Tenormin) 50 MG tablet Take 50 mg by mouth in the morning. cyclobenzaprine (Flexeril) 10 MG tablet Take 1 tablet by mouth at bedtime famotidine (Pepcid) 20 MG tablet Take 1 tablet by mouth at bedtime ibandronate (Boniva) 150 MG tablet Take 150 mg by mouth every 30 (thirty) days levothyroxine (Synthroid, Levoxyl) 112 MCG tablet Take 112 mcg by mouth in the morning. montelukast (Singulair) 10 MG tablet Take 1 tablet by mouth in the morning. pantoprazole (ProtoNix) 40 MG EC tablet Take 1 tablet by mouth in the morning. potassium chloride CR (Klor-Con) 10 MEQ ER tablet Take 1 tablet by mouth in the morning and 1 tablet before bedtime. [DISCONTINUED] cholecalciferol (Vitamin D-3) 125 MCG (5000 UT) capsule 1 (one) time each day at the same time [DISCONTINUED] Symbicort 80-4.5 MCG/ACT inhaler No current facility-administered medications on file prior to visit. Objective Last Recorded Vitals Vitals: 03/11/24 1139 BP: 96/67 Pulse: 68 ENT Physical Exam Constitutional Appearance: patient appears well-developed, well-nourished and well-groomed, Head and Face Appearance: head appears normal and face appears atraumatic; Ear Ear Canals: right ear canal normal; left ear canal normal; Tympanic Membranes: right tympanic membrane normal; left tympanic membrane normal; Nose External Nose: nares patent bilaterally; external nose normal; Internal Nose: septum normal; Oral Cavity/Oropharynx Tongue: normal; Oral mucosa: normal; Hard palate: normal; Soft palate: normal; Tonsils: normal; OC/OP comments: Poor IDL Neck Neck: neck normal; neck palpation normal; Thyroid: thyroid normal; Respiratory Inspection: breathing unlabored; normal breathing rate; Auscultation: breath sounds are clear; Cardiovascular Inspection: extremities are warm and well perfused; no peripheral edema present; Auscultation: regular rate and rhythm; Patient ID: Ella Royal is a 69 y.o. female. Procedures A diagnostic flexible fiberoptic laryngoscopy was performed. The flexible fiberoptic laryngoscope was placed into the nose and advanced to the level of the tip of the epiglottis. Pt unable to control gag sufficiently for an adequate exam. Assessment/Plan Diagnoses and all orders for this visit: Pharyngeal dysphagia Hyperactive gag reflex Pt's description of her dysphagia to solids is very concerning for a neoplasm or other mass. I was no adequately able to examine the pharynx in the office. I will plan a direct laryngoscopy possible cervical esophagoscopy under anesthesia. documented in this encounter [facility] 03-03-2024 Miscellaneous Notes Patient called and stated she was in last week to see you for her throat. She said she took the medication but was sick with vomiting and diarrhea on Wed and Thurs. She said she not any better with the throat and wondered if you can refer her to the ENT. I referred her to ANA Perry per request documented in this encounter [facility] 03-03-2024 Telephone encounter Note Patient called and stated she was in last week to see you for her throat. She said she took the medication but was sick with vomiting and diarrhea on Wed and Thurs. She said she not any better with the throat and wondered if you can refer her to the ENT. [facility] 03-03-2024 Telephone encounter Note I referred her to ANA Perry per request [facility] 02-25-2024 History of Presen t illness Narrative Images from the original note were not included. [address] [facility] [address] SUBJECTIVE: Patient ID: Austin Royal is a 69 y.o. female. Chief Complaint Patient presents with Heartburn Sore throat, sinus drainage and cough since February 01. States she went to urgent care on February 01 for complaints of sore throat, congestion, and cough. Was prescribed [place] [facility] and Prednisone. States none of her symptoms have resolved. Additional symptoms she reports is flare up of her GERD symptoms. She is taking Protonix and Pepcid daily. She has tried TUMS Heartburn She complains of belching, coughing, dysphagia, globus sensation, heartburn and a hoarse voice. She reports no chest pain. The current episode started 1 to 4 weeks ago. The problem has been waxing and waning. The heartburn duration is more than one hour. Nothing aggravates the symptoms. She has tried a PPI, an antacid and a histamine-2 antagonist for the symptoms. Sinus Problem This is a new problem. The current episode started 1 to 4 weeks ago. The problem has been waxing and waning since onset. The pain is moderate. Associated symptoms include congestion, coughing, a hoarse voice and sinus pressure. Pertinent negatives include no chills or shortness of breath. Past treatments include oral decongestants. The treatment provided no relief. The following portions of the patient's history were reviewed and updated as appropriate: allergies, current medications, past family history, past medical history, past social history, past surgical history and problem list. Past Surgical History: Procedure Laterality Date ARTHROSCOPY SHOULDER Right 01/16/2017 Performed by Jr Cristhian Vargas DO at [facility] ARTHROSOCOPY REPAIR ROTATOR CUFF SHOULDER. WITH REMOVAL HARDWARE AND SUBACROMIAL DECOMPRESSION Right 01/16/2017 Performed by Jr Cristhian Vargas DO at [facility] COLONOSCOPY 01/31/2012 normal SHOULDER SURGERY right TUBAL LIGATION Past Medical History: Diagnosis Date Hypertension Hypokalemia Hypothyroidism Kidney problem from too much ibuprofen, 11/2016, has followed up with and no further problems Lumbago with sciatica Renal cyst Seasonal allergies Tear of left rotator cuff 09/24/2019 Visual impairment contacts glasses Immunization History Administered Date(s) Administered COVID-19, mRNA, LNP-S, PF, 100mcg/0.5mL Dose 03/31/2020, 04/28/2020 COVID-19, mRNA, LNP-S, PF, 30mcg/0.3mL Dose 12/25/2020 Covid-19, Mrna, Lnp-s, Bivalent, Pf, 30mcg/0.3 ml 12/31/2021 Covid-19, Mrna, Lnp-s, Pf,katie-sucrose,30 Mcg/0.3ml Fall23 11/18/2023 Covid-19,mrna, Lnp-s, Pf, 50mcg/0.5ml 12+ 12/10/2022 Influenza (IM) Preservative Free 11/19/2013, 03/24/2016 Influenza, High-dose, Quadrivalent 12/31/2020, 12/17/2021 Influenza, Injectable, Mdck, Preservative Free, Quad 01/09/2017, 01/09/2018 Influenza, Injectable, quadrivalent (PF) 05/22/2016 Influenza, Recombinant, Quadrivalent, Injectable, Preserv 01/16/2019, 12/10/2019 Pneumococcal Polysaccharide 12/10/2019, 12/31/2020 Tdap 01/14/2019 Zoster Vaccine Recombinant 01/09/2018, 01/01/2019, 01/02/2019, 03/22/2019 REVIEW OF SYSTEMS: Review of Systems Constitutional: Negative for chills and fever. HENT: Positive for congestion, hoarse voice, postnasal drip, sinus pressure, sinus pain and voice change. Eyes: Negative for visual disturbance. Respiratory: Positive for cough. Negative for chest tightness and shortness of breath. Cardiovascular: Negative for chest pain and palpitations. Gastrointestinal: Positive for dysphagia and heartburn. GERD Endocrine: Negative. Genitourinary: Negative for menstrual problem and pelvic pain. Musculoskeletal: Negative. Skin: Negative. Allergic/Immunologic: Negative. Neurological: Negative for syncope and facial asymmetry. Hematological: Does not bruise/bleed easily. Psychiatric/Behavioral: Negative. PHYSICAL EXAMINATION: Vitals: 02/25/24 0945 BP: 120/70 BP Site: Left Arm BP Postition: Sitting Pulse: 75 Resp: 18 Temp: 36.6 C (97.8 F) TempSrc: Oral SpO2: 98% Weight: 71.6 kg (157 lb 12.8 oz) Height: 165.1 cm (5' 5 ) Patient noted to have elevated BMI and the following intervention(s) were applied: encouragement to exercise. Physical Exam Vitals and nursing note reviewed. Constitutional: General: She is not in acute distress. Appearance: She is well-developed. She is not diaphoretic. HENT: Head: Normocephalic and atraumatic. Right Ear: Tympanic membrane and external ear normal. Left Ear: Tympanic membrane and external ear normal. Nose: Nose normal. Mouth/Throat: Mouth: Mucous membranes are moist. Pharynx: Posterior oropharyngeal erythema present. No oropharyngeal exudate. Eyes: General: Right eye: No discharge. Left eye: No discharge. Conjunctiva/sclera: Conjunctivae normal. Pupils: Pupils are equal, round, and reactive to light. Neck: Thyroid: No thyromegaly. Vascular: No JVD. Cardiovascular: Rate and Rhythm: Normal rate and regular rhythm. Heart sounds: Normal heart sounds. No murmur heard. No friction rub. No gallop. Pulmonary: Effort: Pulmonary effort is normal. Breath sounds: Normal breath sounds. Abdominal: General: Bowel sounds are normal. There is no distension. Palpations: Abdomen is soft. There is no mass. Tenderness: There is no abdominal tenderness. Musculoskeletal: General: Normal range of motion. Cervical back: Normal range of motion and neck supple. Lymphadenopathy: Cervical: No cervical adenopathy. Skin: General: Skin is warm and dry. Capillary Refill: Capillary refill takes less than 2 seconds. Neurological: Mental Status: She is alert and oriented to person, place, and time. Deep Tendon Reflexes: Reflexes are normal and symmetric. Psychiatric: Mood and Affect: Mood normal. Behavior: Behavior normal. Thought Content: Thought content normal. Judgment: Judgment normal. ASSESSMENT/PLAN: Ella was seen today for heartburn. Diagnoses and all orders for this visit: Sore throat - POCT rapid strep A - POCT Influenza A/Influenza B/SARS-COV-2 Veritor - predniSONE (DELTASONE) 20 mg tablet; Take 1 tablet (20 mg total) by mouth in the morning for 5 days. Acute non-recurrent pansinusitis - azithromycin (ZITHROMAX) 250 mg tablet; Take 2 tablets the first day, then 1 tablet daily for 4 days. - predniSONE (DELTASONE) 20 mg tablet; Take 1 tablet (20 mg total) by mouth in the morning for 5 days. Laryngopharyngeal reflux - famotidine (PEPCID) 20 mg tablet; Take 1 tablet (20 mg total) by mouth in the morning and 1 tablet (20 mg total) before bedtime. POCT rapid strep, COVID, and influenza negative in office today Start Zpak and Prednisone for sinuitis Cool mist humidification for congestion, warm salt water gargles as needed for sore throat. Motrin or Tylenol as needed per trenching machine operator guidelines for fever or pain. GERD Limit or avoid trigger foods and beverages. Continue Protonix 40 mg oral daily Increase famotidine to 20 mg oral twice daily ALL QUESTIONS ANSWERED Total time spent was 25 minutes: Preparing to see the patient (e.g., review of tests) Obtaining and/or reviewing separately obtained history Performing a medically appropriate examination and/or evaluation Counseling and educating the patient/family/caregiver Ordering medications, tests, or procedures Follow-up: Annual physical Fasting labs IRENE García 02/25/24 1025 documented in this encounter [facility] [employer] [facility] 02-19-2024 Miscellaneous Notes Pt called she is still having issues with swallowing. Was wondering if you could get her in somewhere. She is Vals Pt. Been to urgent care given steroids. She states they did nothing. We have her on a Wait list. Appt with Renetta on 02/[address] Sullivan could do an EGD on her Message noted. Can we get the ED report? [facility] Refused going to the ER, called patient to see where she went to urgent care [facility] urgent care in [place] and I called medical records to get notes. Notes are in and scanned. Message noted. At this point, she should just keep her appt with Renetta Notified documented in this encounter [facility] 02-19-2024 Telephone encounter Note Pt called she is still having issues with swallowing. Was wondering if you could get her in somewhere. She is Vals Pt. Been to urgent care given steroids. She states they did nothing. We have her on a Wait list. Appt with Renetta on 02/24 [facility] 02-19-2024 Telephone encounter Note Maybe Dr. Sullivan could do an EGD on her [facility] Work Phone: 02-19-2024 Telephone encounter Note Message noted. Can we get the ED report? I do not see one in [facility] or [facility]. [facility] Work Phone: 02-19-2024 Telephone encounter Note Refused going to the ER, called [facility] 02-19-2024 Telephone encounter Note Walk in urgent care in [place] and I called medical records to get notes. [facility] 02-19-2024 Telephone encounter Note Notes are in and scanned. [facility] 02-19-2024 Telephone encounter Note Message noted. At this point, she should just keep her appt with Renetta [facility] 02-19-2024 Telephone encounter Note Notified [facility] [employer] 02-11-2024 Miscellaneous Notes Patient called she said she is having issues swallowing, she cannot eat solid food, should I send her to the ER? yes Notified via documented in this encounter [facility] 02-11-2024 Telephone encounter Note Patient called she said she is having issues swallowing, she cannot eat solid food, should I send her to the ER? [facility] 02-11-2024 Telephone encounter Note yes [facility] 02-11-2024 Telephone encounter Note Notified via VM [facility] 05-07-2023 Miscellaneous Notes ----- Message from KOKO Worrell sent at 11/29/2022 6:35 PM EDT ----- Regarding: cv, copd f/u Due after June 05 - Kitty LM on documented in this encounter [facility] 05-07-2023 Telephone encounter Note ----- Message from KOOK Worrell sent at 11/29/2022 6:35 PM EDT ----- Regarding: cv, copd f/u Due after June 05 - Kitty [facility] 05-07-2023 Telephone encounter Note LM on [facility] Evaluation note Diagnosis Renal mass- Primary Unspecified disorder of kidney and ureter Osteoporosis of lumbar spine [facility] Diagnosis Renal mass- Primary Unspecified disorder of kidney and ureter Encounter for screening mammogram for malignant neoplasm of breast- Primary [facility] Diagnosis Renal mass- Primary Unspecified disorder of kidney and ureter Sore throat- Primary Acute pharyngitis Acute non-recurrent pansinusitis Laryngopharyngeal reflux Acute laryngitis, without mention of obstruction [facility] Renal mass- Primary Unspecified disorder of kidney and ureter Chronic sore throat- Primary Chronic pharyngitis [facility] Diagnosis Pharyngeal dysphagia- Primary Dysphagia, pharyngeal phase Hyperactive gag reflex documented [facility] filedocumented in [facility]Pro[facility] System[facility]ructionsNot on filedocumented in this encounterProMedica Health SystemInstructionsNot on filedocumented in this encounterProMedica Health SystemInstructionsNot on filedocumented in this [facility] InstructionsNot on filedocumented in this encounterProGuern[facility] Instructions* Attachments The following attachments cannot be sent through Care Everywhere. * Sinusitis in adults (Azerbaijani) [facility] Reason for Referral Status Reason Specialty Diagnoses / Procedures Referred By Contact Referred To Contact Authorized Radiology Diagnoses Screening breast examination Procedures MIGUELINA DIGITAL SCREEN W OR WO CAD BILATERAL Kitty Fritz, CAD DRAFTER - CULTURE MEDIA LABORATORY ASSISTANT [address] [place] [address] Assessments Diagnosis Screening breast examination Other screening breast examination Diagnosis Breast cancer screening by mammogram Advance Directives Documents on File Type Date Recorded Patient Chargeback Specialist Expl anation Advance Directives and Living Will Power of Relay Telegrapher Documents on File Type Date Recorded Patient Chargeback Specialist Expl anation ACP-Advance Directive ACP-Power of Relay Telegrapher Summary Purpose Family History No Family History Records FoundNo Family History Records FoundNo Family History Records FoundNo Family History Records FoundNo Family History Records Found Additional Source Comments Reason for Visit (unrecogniz ed section and content) Status Reason Specialty Diagnoses / Procedures Referred By Contact Referred To Contact Pending Review Radiology Diagnoses Encounter for screening mammogram for malignant neoplasm of breast Procedures HC MAMMO SCREENING INCL CAD IF PERF Kitty Fritz, CAD DRAFTER - CULTURE MEDIA LABORATORY ASSISTANT [address] [place] [address] [facility] [address] [address] Status Reason Specialty Diagnoses / Procedures Referre d By Contact Referred To Contact Open Radiology Diagnoses Encounter for screening mammogram for malignant neoplasm of breast Procedures HC MAMMO SCREENING INCL CAD IF PERF Kitty Fritz Mario, CAD DRAFTER - CULTURE MEDIA LABORATORY ASSISTANT [address] [place] [address] [facility] [address] [place] [id number] Reason Comments Med Refill Reason Onset Date Comments Med Refill 03/08/2023 Reason Onset Date Comments Med Refill 11/28/2023 Reason Comments Heartburn Sore throat, sinus d rainage and cough since February 01. Reason Comments Sore Throat INFORMATION SOURCE (unrecogn ized section and content) DATE CREATED AUTHOR 04/05/2020 Deedee Dash [facility] DATE CREATED AUTHOR AUTHOR'S ORGANIZ ATION 12/12/2020 [facility] DATE CREATED AUTHOR AUTHOR'S ORGANIZ ATION 06/20/2023 [facility] DATE CREATED AUTHOR AUTHOR'S ORGANIZ ATION 02/28/2024 [facility] DATE CREATED AUTHOR AUTHOR'S ORGANIZ ATION 03/12/2024 [facility] dical Specialists [employer] Care Teams (unrecognized sec tion and content) [employer] Drilling Machine Operator Relationship Specialty Start Date End Date Brian Sullivan DO [address] [place] [address] PCP - General Internal Medicine 08/16/16 [employer] Machine Operator Relationship Specialty Start Date End Date Brian Sullivan DO [address] [place] [address] PCP - General Internal Medicine 08/16/16 [employer] Machine Operator Relationship Specialty Start Date End Date Mac Vigil CAD DRAFTER-CULTURE MEDIA LABORATORY ASSISTANT [address] [place] [address] PCP - General Family Medicine 09/05/23 [employer] Machine Operator Relationship Specialty Start Date End Date Mac Vigil CAD DRAFTER-CULTURE MEDIA LABORATORY ASSISTANT [address] [place] [address] PCP - General Family Medicine 09/05/23 [employer] Drilling Machine Operator Relationship Specialty Start Date End Date Mac Vigil [facility] [address] [place] [address] PCP - General Family Medicine 09/05/23 [employer] Drilling Machine Operator Relationship Specialty Start Date End Date Mac Vigil [facility] [address] [place] [address] PCP - General Family Medicine 09/05/23 [employer] Drilling Machine Operator Relationship Specialty Start Date End Date Mac Vigil [facility] [address] [place] [address] PCP - General Family Medicine 09/05/23 [employer] Drilling Machine Operator Relationship Specialty Start Date End Date Mac Vigil [facility] [address] [place] [address] PCP - General Family Medicine 09/05/23 [employer] Drilling Machine Operator Relationship Specialty Start Date End Date Brian Sullivan MD [address] [place] [address] PCP - General Internal Medicine 05/17/23 [employer] Drilling Machine Operator Relationship Specialty Start Date End Date Brian Sullivan MD [address] [place] [address] PCP - General Internal Medicine 05/17/23 [employer] Drilling Machine Operator Relationship Specialty Start Date End Date Brian Sullivan MD [address] [place] [address] PCP - General Internal Medicine 05/17/23 FOR RECORDS PERTAINING TO PATIENTS WHO ARE OR HAVE BEEN ENROLLED IN A CHEMICAL DEPENDENCY/SUBSTANCEABUSE PROGRAM, SOME INFORMATION MAY BE OMITTED. This clinical summary was aggregated from multiple sources. Caution should be exercised in using it in the provision of clinical care. This summary normalizes information from multiple sources, and as a consequence, information in this document may materially change the coding, format and clinical context of patient data. In addition, data may be omitted in some cases. CLINICAL DECISIONS SHOULD BE BASED ON THE PRIMARY CLINICAL RECORDS. [employer] provides no warranty or guarantee of the accuracy or completeness of information in this document.
--- NOTE | 2024-03-14 12:45 | FL_ITS ---
[address] [address] Patient Name: JOSE ROYAL MRN: [id number] date: 1955 Sex: F Assigned Patient Location: LAB Current Patient Location: LAB Accession/Order Number: [id number] Exam Date: 03/14/2024 12:50 Report Date: 03/14/2024 13:46 At the request of: MAYRA TOVAR Procedure: FL cineradiography EXAMINATION: FL barium swallow, FL cineradiography HISTORY: ESOPHAGEAL MASS k22.89 FLUORO DOSE: unknown COMPARISON: 03/13/2024 CT exam TECHNIQUE: A swallowing evaluation was performed with fluoroscopy in the usual manner. Standard level fluoroscopic mode of operation utilized. FINDINGS: ORAL PHASE: Normal deglutition. PHARYNGEAL PHASE: Normal swallowing. ASPIRATION: None. STRUCTURE: Wide mouth 1.9 x 1.5 cm posterior diverticulum with contrast filling OTHER: Negative. FL/FL cineradiography IMPRESSION: Posterior esophageal diverticulum Electronically authenticated by: FLAQUITO MACEDO Date: 03/14/2024 13:46
--- NOTE | 2024-03-14 12:46 | FL_ITS ---
[address] [address] Patient Name: JOSE ROYAL MRN: [id number] date: 1955 Sex: F Assigned Patient Location: LAB Current Patient Location: LAB Accession/Order Number: [id number] Exam Date: 03/14/2024 12:50 Report Date: 03/14/2024 13:46 At the request of: MAYRA TOVAR Procedure: FL barium swallow EXAMINATION: FL barium swallow, FL cineradiography HISTORY: ESOPHAGEAL MASS k22.89 FLUORO DOSE: unknown COMPARISON: 03/13/2024 CT exam TECHNIQUE: A swallowing evaluation was performed with fluoroscopy in the usual manner. Standard level fluoroscopic mode of operation utilized. FINDINGS: ORAL PHASE: Normal deglutition. PHARYNGEAL PHASE: Normal swallowing. ASPIRATION: None. STRUCTURE: Wide mouth 1.9 x 1.5 cm posterior diverticulum with contrast filling OTHER: Negative. FL/FL barium swallow IMPRESSION: Posterior esophageal diverticulum Electronically authenticated by: FLAQUITO MACEDO Date: 03/14/2024 13:46
== END 2024-03-14 12:16 | disposition home or self-care (01) ==
LOC: LAB 12:16
PROVIDERS: PCP Internal Medicine; Visit Provider Otolaryngology
DX: K22.89 Other specified disease of esophagus (principal); K22.5 Diverticulum of esophagus, acquired
CPT/HCPCS: 74220; 76120; 82565